=== PATIENT | female | born 1950 | race Caucasian/White ===

== ENCOUNTER 2016-11-14 13:59 | Emergency (ER) | payer MEDICARE, BC ==
[2016-11-14] MEDS ORDERED: Aspirin Low Dose CHEW TAB* 81 MG PO ONE (14:17)
[2016-11-14 14:30] LABS: Hematocrit 44 % (35-47); Hemoglobin 14.5 g/dl (12.0-16.0); Mean Corpuscular HGB Conc 33 g/dl (31-36); Mean Corpuscular Hemoglobin 30 pg (27-31); Mean Corpuscular Volume 91 fL (80-97); Mean Platelet Volume 8 um3 (7.4-10.4); Red Blood Count 4.84 10^6/ul (4.0-5.4); Red Cell Distribution Width 13 % (10.5-15); White Blood Count 9.6 10^3/ul (3.5-10.8)
[2016-11-14 14:46] LABS: Albumin 4.3 g/dL (3.2-5.2); BUN/Creatinine Ratio 18.1 (8-20); Calcium 10.1 mg/dL (8.6-10.3); EGFR African American 87.9 (>60); EGFR Non-African American 68.4 (>60); Globulin 3.1 g/dL (2-4); Magnesium 2.1 mg/dL (1.9-2.7); Potassium 3.6 mmol/L (3.5-5.0); Total Bilirubin 1.1 mg/dL (0.2-1.0); Total Protein 7.4 g/dL (6.4-8.9)
--- NOTE | 2016-11-14 14:51 | RAD ---
INDICATION: Chest pain. COMPARISON: There are no prior studies available for comparison. TECHNIQUE: A portable view of the chest was obtained. FINDINGS: Cardiac and mediastinal contours appear to be within normal limits. The lungs are clear. No pleural effusion or pneumothorax is seen. IMPRESSION: NO EVIDENCE FOR ACUTE FINDING.
[2016-11-14 15:58] LABS: T4 12.13 g/dL (6.09-12.23)
[2016-11-14 15:59] LABS: TSH (Thyroid Stimulating Horm) 0.67 mcIU/mL (0.34-5.60)
[2016-11-14] MEDS ORDERED: Famotidine TAB* 20 MG PO ONE (16:21)
[2016-11-14] MEDS ORDERED: Al Hydrox/Mg Hydrox/Simet LIQ* 30 ML UDC PO ONE (16:21)
--- NOTE | 2016-11-14 18:24 | ED ---
Remi Garcia Billy, scribed for Sal Abdi MD on 11/14/16 at 1429 . HPI Chest Pain - HPI Summary HPI Summary: Patient is a 66 year-old female coming to [facility] presenting with intermittent midsternal chest pain since last night. She states that at its worst, the pain was 9/10, but her pain at this time is only 3/10. Pain improved with antacid last night, but not today. She describes a burning sensation but denies any "reflux." She states that the pain radiates to the epigastrium. Denies any nausea, vomiting, or jaw, neck, or shoulder pain. Denies any history of GERD. - History of Current Complaint Chief Complaint: EDChestPainROMI Time Seen by Provider: 11/14/16 14:06 Hx Obtained From: Patient Onset/Duration: Started Hours Ago, Still Present Timing: Intermittent Initial Severity: Moderate Current Severity: Moderate Pain Intensity: 3 Pain Scale Used: 0-10 Numeric Chest Pain Location: Mid Sternal Chest Pain Radiates: Yes Chest Pain Radiates To:: Epigastric Character: Burning Aggravating Factor(s): Nothing Alleviating Factor(s): OTC Meds Associated Signs and Symptoms: Positive: Chest Pain. Negative: Nausea, Vomiting - Allergy/Home Medications Allergies/Adverse Reactions: Allergies Allergy/AdvReac Type Severity Reaction Status Date / Time No Known Allergies Allergy Verified 03/18/13 12:59 PMH/Surg Hx/FS Hx/Imm Hx Endocrine/Hematology History: Reports: Hx Thyroid Disease Denies: Hx Diabetes Cardiovascular History: Denies: Hx Hypertension, Hx Pacemaker/ICD Respiratory History: Denies: Hx Asthma, Hx Chronic Obstructive Pulmonary Disease (COPD) History: Denies: Hx Dialysis, Hx Renal Disease Sensory History: Denies: Hx Hearing Aid Psychiatric History: Denies: Hx Panic Disorder - Cancer History Cancer Type, Location and Year: breast cancer 2002- radiation treatments Hx Radiation Therapy: Yes - Surgical History Surgery Procedure, Year, and Place: right lumpectomy. hysterectomy Infectious Disease History: No Infectious Disease History: Denies: Hx Clostridium Difficile, Hx Hepatitis, Traveled Outside the [place] in Last 30 Days - Family History Known Family History: Negative: Cardiac Disease, Hypertension, Diabetes - Social History Substance Use Type: Reports: None Review of Systems Negative: Fever Positive: Chest Pain Negative: Vomiting, Nausea All Other Systems Reviewed And Are Negative: Yes Physical Exam - Summary Physical Exam Summary: VITAL SIGNS: Reviewed. GENERAL: Patient is a well developed and nourished female who is lying comfortable in the stretcher. Patient is not in any acute respiratory distress. HEAD AND FACE: No signs of trauma. No ecchymosis, hematomas or skull depressions. Positive right side of face wound secondary to a melanoma biopsy yesterday EYES: PERRLA, EOMI x 2, No injected conjunctiva, no nystagmus. EARS: Hearing grossly intact. Ear canals and tympanic membranes are within normal limits. MOUTH: Oropharynx within normal limits. NECK: Supple, trachea is midline, no adenopathy, no JVD, no carotid bruit, no c- spine tenderness, neck with full ROM. CHEST: Symmetric, no tenderness at palpation LUNGS: Clear to auscultation bilaterally. No wheezing or crackles. CVS: Regular rate and rhythm, S1 and S2 present, no murmurs or gallops appreciated. ABDOMEN: Soft, non-tender. No signs of distention. No rebound no guarding, and no masses palpated. Bowel sounds are normal. EXTREMITIES: FROM in all major joints, no edema, no cyanosis or clubbing. NEURO: Alert and oriented x 3. No acute neurological deficits. Speech is normal and follows commands. SKIN: Dry and warm Triage Information Reviewed: Yes Vital Signs On Initial Exam: Initial Vitals Temp Pulse Resp BP Pulse Ox 98.7 F 87 14 135/67 99 11/14/16 14:07 11/14/16 14:07 11/14/16 14:07 11/14/16 14:07 11/14/16 14:07 Vital Signs Reviewed: Yes Diagnostics - Vital Signs Vital Signs Temp Pulse Resp BP Pulse Ox 11/14/16 14:07 98.7 F 87 14 135/67 99 - Laboratory Lab Results: Lab Results 11/14/16 11/14/16 11/14/16 Range/Units 14:20 14:20 14:20 WBC 9.6 (3.5-10.8) 10^3/ul RBC 4.84 (4.0-5.4) 10^6/ul Hgb 14.5 (12.0-16.0) g/dl Hct 44 (35-47) % MCV 91 (80-97) fL MCH 30 (27-31) pg MCHC 33 (31-36) g/dl RDW 13 (10.5-15) % Plt Count 287 (150-450) 10^3/ul MPV 8 (7.4-10.4) um3 Neut % (Auto) 78.8 (38-83) % Lymph % (Auto) 12.8 L (25-47) % Calloway % (Auto) 6.6 (1-9) % Eos % (Auto) 1.3 (0-6) % Baso % (Auto) 0.5 (0-2) % Absolute Neuts (auto) 7.6 (1.5-7.7) 10^3/ul Absolute Lymphs (auto) 1.2 (1.0-4.8) 10^3/ul Absolute Monos (auto) 0.6 (0-0.8) 10^3/ul Absolute Eos (auto) 0.1 (0-0.6) 10^3/ul Absolute Basos (auto) 0 (0-0.2) 10^3/ul Absolute Nucleated RBC 0 10^3/ul Nucleated RBC % 0 Sodium 134 (133-145) mmol/L Potassium 3.6 (3.5-5.0) mmol/L Chloride 97 L (101-111) mmol/L Carbon Dioxide 32 (22-32) mmol/L Anion Gap 5 (2-11) mmol/L BUN 15 (6-24) mg/dL Creatinine 0.83 (0.51-0.95) mg/dL Est GFR ( Amer) 87.9 (>60) Est GFR (Non-Af Amer) 68.4 (>60) BUN/Creatinine Ratio 18.1 (8-20) Glucose 108 H (70-100) mg/dL Lactic Acid 1.3 (0.5-2.0) mmol/L Calcium 10.1 (8.6-10.3) mg/dL Magnesium 2.1 (1.9-2.7) mg/dL Total Bilirubin 1.10 H (0.2-1.0) mg/dL AST 19 (13-39) U/L ALT 18 (7-52) U/L Alkaline Phosphatase 67 (34-104) U/L Total Creatine Kinase 38 (10-223) U/L CK-MB (CK-2) Pending Troponin I 0.00 (<0.04) ng/mL Total Protein 7.4 (6.4-8.9) g/dL Albumin 4.3 (3.2-5.2) g/dL Globulin 3.1 (2-4) g/dL Albumin/Globulin Ratio 1.4 (1-3) TSH Pending Thyroxine (T4) Pending Result Diagrams: 11/14/16 14:20 11/14/16 14:20 Lab Statement: Any lab studies that have been ordered have been reviewed, and results considered in the medical decision making process. - Radiology CXR Xray Interpretation: No Acute Changes Radiology Interpretation Completed By: Radiologist - EKG 1404 EKG Interpretation: NSR 86 bpm, no ST elevation Chest Pain Course/Dx - Course Assessment/Plan: Patient is a 66 year-old female coming to [facility] presenting with intermittent midsternal chest pain since last night. She states that at its worst, the pain was 9/10, but her pain at this time is only 3/10. Pain improved with antacid last night, but not today. She describes a burning sensation but denies any "reflux." She states that the pain radiates to the epigastrium. Denies any nausea, vomiting, or jaw, neck, or shoulder pain. Denies any history of GERD. Bloodwork is WNL. Trop #1 is 0.00. Trop #2 is also 0.00 after 4 hours. CXR showed no acute intrathoracic disease. EKG showed NSR with no ST elevation. In the ED course, patient was given Maalox and Pepcid and the burning chest pain improved. At this point, the patient is asymptomatic, therefore she will be discharged to follow up with PCP. She was instructed to treturn with any chest pain, SOB, dizziness, and diaphoresis. She understands and agrees. She is hemodynamically stable, A&Ox3. I discussed all the findings and test results with the patient. Patient was instructed to return to the emergency room immediately if any of the symptoms return or worsens. Plan of care was discussed with the patient and understands and agrees. All questions were answered at patient satisfaction. There were no further complaints or concerns. Lung exam before discharge: CTA B/L. Good air exchange. No wheezing or crackles heard. CVS: S1 and S2 present. No murmurs appreciated. Patient is alert and oriented x 3. Patient is hemodynamically stable. 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
[2016-11-14 18:25] VITALS: BP 136/78
== END 2016-11-14 18:22 | disposition home or self-care (01) ==
LOC: ED 13:59
DX: R07.89 Other chest pain (principal); Z85.3 Personal history of malignant neoplasm of breast; Z92.3 Personal history of irradiation
CPT/HCPCS: 36415; 71010; 80053; 82550; 82553; 83605; 83735; 83880; 84436; 84443; 84484; 85025; 93005; 99283; A9270-GY

== ENCOUNTER 2016-12-12 17:56 | Emergency (ER) | payer MEDICARE, BC ==
[2016-12-12 19:18] VITALS: BP 153/65
[2016-12-12] MEDS ORDERED: NS 0.9% 1000 ML* 1,000 ML IV ONE (21:07)
[2016-12-12] MEDS ORDERED: Ondansetron INJ* 2 MG/ML VIAL IV ONE (21:08)
[2016-12-12] MEDS ORDERED: Ondansetron ODT TAB* 4 MG PO ONE (22:25)
--- NOTE | 2016-12-12 22:35 | UC ---
Carmelo Garcia Anna, scribed for Akilah Camacho MD on 12/12/16 at 2114 . FLU HPI - HPI Summary HPI Summary: Patient is a 66 y/o female coming to [facility] [place] presenting with sudden onset of intermittent diarrhea that began two days ago. She describes the diarrhea as watery, not particularly malodorous, of yellow and brown color. She has had 20 episodes of diarrhea today. She experienced emesis two days ago and yesterday but has not experienced any emesis today. She has felt nauseous since two days ago. She additionally has a sharp, stabbing pain behind her ear and a unilateral MONTEIRO. Per triage notes, the patient describes the severity of the MONTEIRO as 7/10, which was somewhat alleviated by the use of ibuprofen MED PEDS. She has some abdominal cramping and bowel sounds prior to BM but denies abd pain otherwise. She has only eaten crackers, orange Pedialyte, and katarina ashely the last two days. She was drinking many fluids at home but has not had anything to drink since arrival at [facility] [place]. - History of Current Complaint Chief Complaint: UCGI Stated Complaint: DIARRHEA MONTEIRO Hx Obtained From: Patient ?: No Onset/Duration: Sudden Onset, Lasting Days, Still Present Severity Currently: Moderate Severity Initially: Moderate Pain Intensity: 7 Pain Scale Used: 0-10 Numeric Associated Signs & Symptoms: Positive: Headache, Vomiting - resolved, Diarrhea - Allergy/Home Medications Allergies/Adverse Reactions: Allergies Allergy/AdvReac Type Severity Reaction Status Date / Time Shellfish Allergy Allergy Diarrhea Verified 12/12/16 19:18 PMH/Surg Hx/FS Hx/Imm Hx - Additional Past Medical History Additional PMH: Hx lyme disease; Hx facial melanoma Endocrine History Of: Reports: Thyroid Disease Denies: Diabetes Cardiovascular History Of: Denies: Cardiac Disorders, Hypertension, Pacemaker/ICD Respiratory History Of: Denies: COPD, Asthma GI/ History Of: Denies: Renal Disease - Surgical History Surgical History: Yes Surgery Procedure, Year, and Place: right lumpectomy. hysterectomy. facial surgery for melanoma - Family History Known Family History: Positive: Other - FHx CA Negative: Cardiac Disease, Hypertension, Diabetes - Social History Occupation: Employed Part-time - [employer] Lives: With Family Alcohol Use: None Substance Use Type: None Smoking Status (MU): Never Smoked Tobacco Review of Systems Constitutional: Negative Skin: Negative Eyes: Negative ENT: Ear Ache Respiratory: Negative Cardiovascular: Negative Gastrointestinal: Abdominal Pain - cramping, Vomiting - resolved, Diarrhea, Other - Nausea, rumbling bowel sounds Genitourinary: Negative Motor: Negative Neurovascular: Negative Musculoskeletal: Negative Neurological: Headache Psychological: Negative All Other Systems Reviewed And Are Negative: Yes Physical Exam Triage Information Reviewed: Yes Appearance: Well-Appearing, No Pain Distress, Well-Nourished Vital Signs: Initial Vital Signs Temp 97.8 F 12/12/16 19:13 Pulse 95 12/12/16 19:13 Resp 12 12/12/16 19:13 BP 153/65 12/12/16 19:13 Pulse Ox 100 12/12/16 19:13 High blood pressure noted. Vital Signs Reviewed: Yes Eyes: Positive: Conjunctiva Clear ENT Exam: Other - Recent scar, left cheek, healing well, no sign of infection. Dry mucous membranes. ENT: Positive: TMs normal Neck: Positive: Supple Respiratory: Positive: Lungs clear, Normal breath sounds, No respiratory distress Cardiovascular: Positive: RRR, No Murmur, Pulses Normal, Brisk Capillary Refill Abdominal Exam: Other - Minimal diffuse tenderness. No rebound. Abdomen Description: Positive: No Organomegaly, Soft. Negative: CVA Tenderness (R), CVA Tenderness (L), Guarding, Hepatomegaly, McBurney's Point Tenderness, Peritoneal Signs, Pulsatile Mass, Splenomegaly Bowel Sounds: Positive: Present Musculoskeletal: Positive: Strength Intact, ROM Intact Neurological: Positive: Alert, Muscle Tone Normal Psychological Exam: Normal Skin Exam: Normal Flu Course/Dx - Course Course Of Treatment: Allergy noted. High blood pressure noted. Discussed risks of Abx, which the patient is currently taking following facial surgery done in [place] for melanoma on 11/10. Pt thinks she would feel better with fluids. Will hydrate with NS and give zofran. - Differential Dx/Diagnosis Differential Diagnosis/HQI/PQRI: Other - infectious colitis, c difficile colitis Provider Diagnoses: acute diarrhea with mild dehydration. High blood pressure without diagnosis of hypertension Discharge - Discharge Plan Condition: Stable Disposition: HOME Prescriptions: Ondansetron ODT TAB* [Zofran 4 MG Odt TAB*] 4 mg PO Q6H PRN #12 tab.odt PRN Reason: Nausea Patient Education Materials: Infectious Colitis (ED) Referrals: Batool Lam MD [Primary Care Provider] - 01/11/17 (Follow up with your primary care provider dinora one month regarding elevated blood pressure, 153/65.) Additional Instructions: You were given zofran 4mg IV and one liter of saline at 9pm. You may take more zofran 4mg oral disintegrating tablet at 3am if needed. RETURN TO URGENT CARE FOR ANY NEW OR WORSENING SYMPTOMS The documentation as recorded by the Carmelo moore Anna accurately reflects the service I personally performed and the decisions made by me, Akilah Camacho MD.
== END 2016-12-12 22:50 | disposition home or self-care (01) ==
LOC: UCEAST 17:56
DX: R19.7 Diarrhea, unspecified (principal); E86.0 Dehydration; R03.0 Elevated blood-pressure reading, without diagnosis of hypertension; E07.9 Disorder of thyroid, unspecified; Z85.820 Personal history of malignant melanoma of skin
CPT/HCPCS: 87045; 87046; 87328; 87329; 87449; 87493; 87899; 96360; 96361; 96374; 99212; G0463; J2405

== ENCOUNTER 2019-04-14 10:25 | Emergency (ER) | payer MEDICARE, OTHER ==
[2019-04-14 10:35] VITALS: BP 145/78
--- NOTE | 2019-04-14 11:17 | UC ---
Skin Complaint HPI - HPI Summary HPI Summary: 68 yo female with 4 day hx of MONTEIRO, fever, sore neck, myalgia noted three ticks on legs has had LD - History of Current Complaint Chief Complaint: UCHeadache Time Seen by Provider: 04/14/19 11:07 Stated Complaint: HEADACHE /BODYACHES Hx Obtained From: Patient Onset/Duration: Gradual Onset, Lasting Days Skin Exposure Onset/Duration: Days Ago Onset Severity: Moderate Current Severity: Moderate Pain Intensity: 5 Pain Scale Used: 0-10 Numeric Associated Signs & Symptoms: Positive: Fever. Negative: Nausea, Vomiting, Numbness, Thirst, Diaphoresis, Weakness, Pallor, Shivering, Difficulty Breathing , Chills, Cough, Wheezing, Chest Pain, Hoarseness, Throat Tightening, Rash, Abdominal Pain, Lightheadedness, Syncope, Drainage, Bruising, Tenderness, Red Streaks, Joint Swelling Related History: Insect Bite/Sting - Allergy/Home Medications Allergies/Adverse Reactions: Allergies Allergy/AdvReac Type Severity Reaction Status Date / Time shellfish derived Allergy diahrea Verified 04/14/19 10:32 PMH/Surg Hx/FS Hx/Imm Hx Previously Healthy: Yes - Surgical History Surgical History: Yes Surgery Procedure, Year, and Place: right lumpectomy. hysterectomy. facial surgery for melanoma - Family History Known Family History: Positive: Other - FHx CA Negative: Cardiac Disease, Hypertension, Diabetes - Social History Alcohol Use: None Substance Use Type: None Smoking Status (MU): Never Smoked Tobacco Review of Systems All Other Systems Reviewed And Are Negative: Yes Constitutional: Positive: Fever, Fatigue Skin: Positive: Other - three ticks currently on Lower Extr Eyes: Positive: Negative ENT: Positive: Negative, Epistaxis Respiratory: Positive: Negative Cardiovascular: Positive: Negative Gastrointestinal: Positive: Negative Genitourinary: Positive: Negative Motor: Positive: Negative Neurovascular: Positive: Negative Musculoskeletal: Positive: Myalgia Neurological: Positive: Headache Psychological: Positive: Negative Physical Exam Triage Information Reviewed: Yes Appearance: Well-Appearing, No Pain Distress, Well-Nourished Vital Signs: Initial Vital Signs Temp 98.4 F 04/14/19 10:33 Pulse 98 04/14/19 10:33 Resp 16 04/14/19 10:33 BP 145/78 04/14/19 10:33 Pulse Ox 100 04/14/19 10:33 Vital Signs Reviewed: Yes Eyes: Positive: Conjunctiva Clear ENT: Positive: Hearing grossly normal. Negative: Nasal congestion, Nasal drainage, Tonsillar exudate, Trismus, Muffled voice, Hoarse voice Neck: Positive: Supple, Nontender, No Lymphadenopathy Respiratory: Positive: Lungs clear, Normal breath sounds, No respiratory distress, No accessory muscle use Cardiovascular: Positive: RRR, No Murmur Musculoskeletal: Positive: ROM Intact, No Edema Neurological: Positive: Alert Psychological Exam: Normal Skin Exam: Other - three tick- 2 nymph forms on right leg and one on left...all removed with tweezers Course/Dx - Diagnoses Provider Diagnosis: Lyme disease, Tick bites Discharge - Sign-Out/Discharge Documenting (check all that apply): Patient Departure All imaging exams completed and their final reports reviewed: No Studies - Discharge Plan Condition: Stable Disposition: HOME Prescriptions: Amoxicillin PO (*) [Amoxicillin 500 MG CAP*] 500 mg PO TID #42 cap Patient Education Materials: Lyme Disease (ED) Referrals: Batool Lam MD [Primary Care Provider] - 5 Days - Billing Disposition and Condition Condition: STABLE Disposition: Home
== END 2019-04-14 11:22 | disposition home or self-care (01) ==
LOC: UCEAST 10:25
DX: A69.20 Lyme disease, unspecified (principal); S80.862A Insect bite (nonvenomous), left lower leg, initial encounter; S80.861A Insect bite (nonvenomous), right lower leg, initial encounter; W57.XXXA Bitten or stung by nonvenomous insect and other nonvenomous arthropods, initial encounter; Y92.9 Unspecified place or not applicable
CPT/HCPCS: 99212; G0463